=== PATIENT | male | born 1975 | race African-American/Black ===

== ENCOUNTER 2016-08-23 07:06 | Emergency (ER) | payer SELFPAY ==
[~2016-08-23] VITALS: Ht 185.4 cm; Wt 95.3 kg
[2016-08-23 07:10] VITALS: BP 129/83
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
[2016-08-23 08:44] LABS: ACETAMINOPHEN < 10 ug/mL (10-30); ALANINE AMINOTRANSFERASE 56 U/L (3-41); ALBUMIN/GLOBULIN RATIO 1.6 (1.0-2.7); ALCOHOL < 10 mg/dL; ANION GAP 18 (5-15); ASPARTATE AMINO TRANSFERASE 51 U/L (5-40); CALCIUM 9.7 mg/dL (8.6-10.2); CARBON DIOXIDE 23 mEQ/L (20-30); CHLORIDE 100 mEQ/L (98-107); GLOMERULAR FILTRATION RATE > 60 mL/min (>60); HEMOLYSIS 27; POTASSIUM 4.1 mEQ/L (3.4-4.9); SODIUM 141 mEQ/L (135-145); TOTAL PROTEIN 7.5 g/dL (6.6-8.7)
[2016-08-23 09:10] LABS: BASOPHILS % (AUTO) 1.3 % (0.0-2.0); EOSINOPHILS % (AUTO) 0.8 % (0.0-3.0); LYMPHOCYTES % (AUTO) 26.8 % (20.0-45.0); MEAN CORPUSCULAR HEMOGLOBIN 33.1 PG (27.0-31.0); MEAN CORPUSCULAR HGB CONC 34.7 G/DL (32.0-36.0); MEAN CORPUSCULAR VOLUME 95 FL (80-99); MONOCYTES % (AUTO) 6.1 % (1.0-10.0); PLATELET COUNT 207 K/UL (150-450); RED BLOOD COUNT 4.71 M/UL (4.70-6.10); RED CELL DISTRIBUTION WIDTH 11.6 % (11.6-14.8); WHITE BLOOD COUNT 7.5 K/UL (4.8-10.8)
[2016-08-23 10:53] VITALS: BP 128/85
[2016-08-23 14:48] VITALS: BP 130/75
[2016-08-23 14:49] VITALS: BP 130/75
== END 2016-08-23 14:53 ==
LOC: EDBD 07:06 → EMR 07:40
DX: F29 Unspecified psychosis not due to a substance or known physiological condition (principal)
CPT/HCPCS: 36415; 80053; 80300; 85025; 99284; G0480; 80329

== ENCOUNTER 2019-10-16 17:59 | Emergency (ER) | payer MEDICAID ==
[~2019-10-16] VITALS: Ht 185.4 cm; Wt 102.1 kg
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
[2019-10-16 18:11] VITALS: BP 127/84
--- NOTE | 2019-10-16 18:22 | NUR ---
ED Nurse Note:pt. was BIBA from hotel room with behaivioral complaint, he barricaded door when [employer] arrived, has bipolar history
[2019-10-16 18:40] LABS: APPEARANCE,URINE CLEAR; BILIRUBIN, URINE NEGATIVE (NEGATIVE); GLUCOSE, URINE (UA) NEGATIVE (NEGATIVE); KETONES,URINE NEGATIVE (NEGATIVE); LEUKOCYTE ESTERASE ,URINE NEGATIVE (NEGATIVE); NITRITE,URINE NEGATIVE (NEGATIVE); PH,URINE 6 (4.5-8.0); PROTEIN,URINE 1+ (NEGATIVE); UROBILINOGEN,URINE NORMAL MG/DL (0.0-1.0)
[2019-10-16 18:42] LABS: COLOR,URINE YELLOW
--- NOTE | 2019-10-16 19:05 | NUR ---
ED Nurse Note: Report received from FABIANA Martin. Pt is in no acute disterss. ERMD bedside. Will continue to monitor.
--- NOTE | 2019-10-16 21:00 | NUR ---
ED Nurse Note: Upon discharge, pt stated that he did have a plan to harm himself and was having "racing thoughts". Pt states plan was to jump out of a window and he cannot gauruntee his safety at this time. CELESTINE made aware.
--- NOTE | 2019-10-16 21:10 | NUR ---
ED Nurse Note: Pt belongings taken from pt to ensure safety. Pt has two large backpacks with belonings inside locked in locker 2.
[2019-10-16 22:00] VITALS: BP 130/74
--- NOTE | 2019-10-16 22:00 | NUR ---
ED Nurse Note: Blood drawn by RN and sent to lab.
--- NOTE | 2019-10-16 22:00 | NUR ---
ED Nurse Note: Pt resting in bed at this time, RN bedside. No acute distress noted. Pt is not aggressive and is acting cooperatively. VSS.
[2019-10-16 22:21] LABS: BASOPHILS % (AUTO) 2.2 % (0.0-2.0); HEMATOCRIT 39.6 % (42.0-52.0); HEMOGLOBIN 13.2 G/DL (14.2-18.0); MEAN CORPUSCULAR VOLUME 96 FL (80-99); MONOCYTES % (AUTO) 8.3 % (1.0-10.0); NEUTROPHILS % (AUTO) 56.5 % (45.0-75.0); PLATELET COUNT 331 K/UL (150-450); RED BLOOD COUNT 4.11 M/UL (4.70-6.10); RED CELL DISTRIBUTION WIDTH 12.2 % (11.6-14.8); WHITE BLOOD COUNT 8.8 K/UL (4.8-10.8)
[2019-10-16 22:37] LABS: ANION GAP 8 mmol/L (5-15); BLOOD UREA NITROGEN 8 mg/dL (7-18); CALCIUM 8.9 MG/DL (8.5-10.1); CARBON DIOXIDE 30 MMOL/L (21-32); CHLORIDE 102 MMOL/L (98-107); CREATININE 0.9 MG/DL (0.55-1.30); POTASSIUM 3.6 MMOL/L (3.5-5.1); SODIUM 139 MMOL/L (136-145)
[2019-10-16 22:50] LABS: ALANINE AMINOTRANSFERASE 82 U/L (12-78); ALBUMIN 3.7 G/DL (3.4-5.0); ALBUMIN/GLOBULIN RATIO 1.2 (1.0-2.7); ALKALINE PHOSPHATASE 60 U/L (46-116); ASPARTATE AMINO TRANSFERASE 62 U/L (15-37); BILIRUBIN,TOTAL 0.6 MG/DL (0.2-1.0)
--- NOTE | 2019-10-17 | NUR ---
ED Nurse Note: Pt appears to be sleeping in bed at this time. No acute distress noted.
--- NOTE | 2019-10-17 02:00 | NUR ---
ED Nurse Note: Pt ambulated to restroom with steady gait. No acute distress noted. Will continue to montior.
--- NOTE | 2019-10-17 04:30 | NUR ---
ED Nurse Note: Pt ambulated to restroom with steady gait. No acute distress noted. Pt is cooperative. Will continue to monitor.
[2019-10-17 05:30] VITALS: BP 140/85
--- NOTE | 2019-10-17 07:10 | NUR ---
HAND-OFF: Report given to FABIANA Cleaning and endorsed plan of care. Pt is in no acute distress and being cooperative at this time.
[2019-10-17 07:41] VITALS: BP 136/71
--- NOTE | 2019-10-17 07:42 | NUR ---
ED Nurse Note: received pt from FABIANA Martinez. Glo/Dang. Breathing normal/even/unlabored. Skin warm/dry/intact. IV patent and intact. Pt denies SI/HI at this time but states that he was SI and wanted to cut himself. ASHLEIGH noted. Breakfast ordered. Addendum: 10/17/19 at 0744 by [email or web address] ED Nurse Note: received pt from FABIANA Martinez. Glo/Dang. Breathing normal/even/unlabored. Skin warm/dry/intact. Pt denies SI/HI at this time but states that he was SI and wanted to cut himself. ASHLEIGH noted. Breakfast ordered.
--- NOTE | 2019-10-17 11:06 | NUR ---
HAND-OFF: Report given to FABIANA Rivera. NAD noted.
[2019-10-17 11:40] VITALS: BP 130/70
--- NOTE | 2019-10-17 11:45 | NUR ---
ED Nurse Note: Pt is laying down in bed, awake. Pt denies SI right now and feels like he is better than yesterday. Safety precautions in place.
[2019-10-17] MEDS ORDERED: LORazepam 1mg tab ORAL ONE (12:45)
--- NOTE | 2019-10-17 12:45 | NUR ---
ED Nurse Note: Pt is laying in room eating a sandwhich. Safety measures in place.
--- NOTE | 2019-10-17 14:15 | NUR ---
ED Nurse Note: Pt is alert and orientedx4, no voices. Safety measures in place. Pt eating lunch.
[2019-10-17 15:50] VITALS: BP 126/71
[2019-10-17] MEDS ORDERED: ZYPREXA10 MG ORAL ×2 (17:30→17:54)
[2019-10-17] MEDS ORDERED: ZOLOFT25 MG ORAL ×2 (17:31→17:54)
--- NOTE | 2019-10-17 18:14 | Consultation ---
DATE OF CONSULTATION: 10/17/2019 CONSULTING PHYSICIAN: Isaiah Tovar M.D. HISTORY OF PRESENT ILLNESS: The patient is a 44-year-old black male with a history of methamphetamine abuse admitted to the hospital on 5150 for being danger to self. The patient has a medication-seeking behavior. Stated that he needs to be transferred to [place]. The patient's psychiatrist is Dr. Bird. The patient is calm sitting on a gurney. Does not appear to be depressed nor distressed. He is not endorsing any suicidal or homicidal ideation. Eating serving inadequately, but asking for more food. The patient is requesting to be transferred to psychiatric unit and see his psychiatrist also. PAST PSYCHIATRY HISTORY: Psychotic disorder most likely due to using drugs. PAST MEDICAL HISTORY: Nonsignificant. ALLERGIES: Chart was reviewed. SUBSTANCE USE HISTORY: Methamphetamine. MENTAL STATUS EXAMINATION: The patient is alert and oriented times self, place, and situation. Mood is neutral. Affect is flat. Thought process concrete. Thought content no suicidal or homicidal ideation. Cognition is intact. Insight and judgment is good. ASSESSMENT: [place] I Methamphetamine abuse. [place] II Deferred. [place] III As above. [place] IV Low. [place] V 70. PLAN: 1. The patient is not an eminent danger to self or others. 2. Discontinue the 5150. 3. Continue the current psychotropic medications. 4. We will discontinue the patient. We will follow up plan with a psychiatrist. Isaiah Tovar M.D. DR: ARON JOB#: [id number] CC:
[2019-10-17 18:31] VITALS: BP 128/78
[2019-10-17 18:56] VITALS: BP 128/78
--- NOTE | 2019-10-17 18:57 | NUR ---
Homeless Discharge: Patient is being discharged from medical care. Awake, alert and oriented x3. Minicog done. [place] and food provided to pt. pt is appropriately dressed for the weather. After care instructions, including referral to community resources were given. Patient verbalized understanding of After care instructions; at this time patient does not request medications, equipment or placement. Patient signed patient consent in the medical record for patient destination upon discharge. All medical devices such as IV and ID band were removed. Patient ambulated out with all personal belongings with steady gait.
== END 2019-10-17 18:56 | disposition home or self-care (01) ==
LOC: EDBD 17:59 → EMR 18:10
DX: F31.9 Bipolar disorder, unspecified (principal); F15.10 Other stimulant abuse, uncomplicated; Z79.899 Other long term (current) drug therapy
CPT/HCPCS: 36415; 80053; 80307; 81003; 85025; G0480; G0481; Z7502; 99284

== ENCOUNTER 2019-11-21 04:52 | Emergency (ER) | payer MEDICAID, OTHER ==
[~2019-11-21] VITALS: Ht 185.4 cm; Wt 104.3 kg
[~2019-11-21 04:52] MED LIST: ZOLOFT25 MG ORAL; ZYPREXA10 MG ORAL
[2019-11-21] MEDS ORDERED: BENADRYL CRE1 APPLIC TOPIC (05:14)
[2019-11-21] MEDS ORDERED: DiphenhydrAMINE & Zinc 28g Cream TOPIC ONE (05:15)
--- NOTE | 2019-11-21 05:19 | Emergency Room Report ---
History of Present Illness General Chief Complaint: General Complaint Source: Patient Present Illness HPI Disclaimer: Please note that this report is being documented using [employer] technology. This can lead to erroneous entry secondary to incorrect interpretation by the dictating instrument. HPI: 44-year-old male presents for evaluation of foot pain. Patient notes pain over his feet bilaterally and intermittent tingling. Denies trauma but does walk a lot. Denies prior history of foot injury or surgeries over the lower extremities. Also complaining of body wide itching and bumps over his skin. He believes there is fluid coming out of these bumps. Denies skin breakdown, ulcerations, bruising, bleeding. Denies fever or chills. PMH: Bipolar disorder PSH: Reviewed Allergies: Denies Social Hx: Marijuana use, methamphetamine use Allergies: Coded Allergies: No Known Allergies (Unverified , 08/23/16) COVID-19 Screening Contact w/high risk pt: No Recent Travel to affected area: No Experienced COVID-19 symptoms?: No Review of Systems All Other Systems: negative except mentioned in HPI Physical Exam Vital Signs Date Time Temp Pulse Resp B/P (MAP) Pulse Ox O2 Delivery O2 Flow Rate FiO2 11/21/19 04:53 98.6 103 22 125/71 (89) 96 Room Air General: Awake and alert, no acute distress HEENT: NC/AT. EOMI. Resp: Normal work of breathing Skin: Intact. No abrasions, laceration or rash over the exposed skin. Multiple areas of healing picked lesions over his arms and legs. There is a blister over the left great toe that has been ruptured. No signs of surrounding erythema, edema, no purulence, no drainage, no bleeding. MSK: Normal tone and bulk. Moving all extremities. No obvious deformity. No tenderness in the lower extremities. Full range of motion at the ankles. No midfoot tenderness, no tenderness over the lateral or medial malleolus, no edema. 2+ PT and DP pulses. Neuro: Awake and alert. Mentating appropriately, sensation intact over the dermatomes of the lower extremities bilaterally. Medical Decision Making Diagnostic Impression: Primary Impression: Blister Additional Impression: Itching ER Course This is a 44-year-old male presenting for evaluation of bilateral foot pain without injury and bumps over his skin. Regarding his foot pain, looks like he has a ruptured blister over his left great toe but otherwise no signs of infection or trauma noted. May be overuse injury from his extensive walking. Patient is picking his skin during the examination trying to express material from hair follicles. I see no evidence of abscess, cellulitis or other acute skin pathology though the patient is covered and healing lesions over his extremities from excessive skin picking. He is complaining of itching and will be prescribed Benadryl cream. I advised him to stop picking at his skin as it can cause an infection. Also wanted his blood pressure checked on arrival. Blood pressures within normal limits. Will clean his blister and apply bandage. Provide Benadryl cream for his itching and discharged with outpatient follow-up. Last Vital Signs Date Time Temp Pulse Resp B/P (MAP) Pulse Ox O2 Delivery O2 Flow Rate FiO2 11/21/19 04:53 98.6 103 22 125/71 (89) 96 Room Air Disposition: HOME, SELF-CARE Condition: Stable Scripts Diphenhydramine HCl/Zinc Acet (Benadryl Itch Stopping Crm) 28.3 Gm Cream..g. 1 APPLIC TOPIC TID for 5 Days, APPLIC Prov: Trever Fields MD 11/21/19 Patient Instructions: Blisters Additional Instructions: Please follow-up with your primary care doctor in the next 1 to 3 days to discuss this emergency department visit and for reevaluation. If you have any new or worsening symptoms please return to the emergency department for reevaluation. Please note that this report is being documented using [employer] technology. This can lead to erroneous entry secondary to incorrect interpretation by the dictating instrument. Trever Fields MD Nov 21, 2019 05:19
[2019-11-21 05:35] VITALS: BP 121/60
== END 2019-11-21 05:35 | disposition home or self-care (01) ==
LOC: EMR 05:07
DX: S90.422A Blister (nonthermal), left great toe, initial encounter (principal); X58.XXXA Exposure to other specified factors, initial encounter; Y92.9 Unspecified place or not applicable; L29.9 Pruritus, unspecified; F31.9 Bipolar disorder, unspecified; M25.571 Pain in right ankle and joints of right foot; M25.572 Pain in left ankle and joints of left foot
CPT/HCPCS: 99282

== ENCOUNTER 2020-06-06 20:04 | Emergency (ER) | payer OTHER ==
[~2020-06-06] VITALS: Ht 182.9 cm; Wt 81.6 kg
[~2020-06-06 20:04] MED LIST changes: +BENADRYL CRE1 APPLIC TOPIC
[2020-06-06 20:10] VITALS: BP 125/72
--- NOTE | 2020-06-06 20:10 | NUR ---
ED Nurse Note: Patient brought in by ambulance [facility] [address] from [facility], d/t pt requesting to be placed at [facility]. Patient aao x 4 and ambulatory with steady gait. Patient denies pain or any physical complaints. Patient reports history of schizophrenia. Patient stable during assessment. No acute distress noted.
--- NOTE | 2020-06-06 20:15 | NUR ---
ED Nurse Note: ERMD at bedside
--- NOTE | 2020-06-06 20:37 | Emergency Room Report ---
History of Present Illness General Chief Complaint: Behavioral Complaint Source: Patient, EMS (Trever Fields MD) Present Illness HPI Disclaimer: Please note that this report is being documented using DRAGON technology. This can lead to erroneous entry secondary to incorrect interpretation by the dictating instrument. HPI: 44-year-old male presents by EMS for evaluation of auditory hallucinations. The patient states he is hearing voices and has a prior history of schizophrenia. No longer compliant with his Geodon, Seroquel or Zyprexa. Recently discharged from [facility] after a brief stay according to patient. He was seen at [facility] just prior to arrival stating a persistent auditory hallucinations. Currently denies SI/HI. His story is tangential he is a poor historian but he feels increasingly paranoid and believes people are trying to infect him with COVID-19. Denies harming self or others. Prior history of methamphetamine use. States last use was over 3 days ago. PMH: Substance abuse, schizophrenia PSH: Reviewed Allergies: Olanzapine Social Hx: Methamphetamine use, THC use (Trever Fields MD) Allergies: Coded Allergies: OLANZAPINE (Verified Allergy, Unknown, 06/06/20) COVID-19 Screening Contact w/high risk pt: No Recent Travel to affected area: No Experienced COVID-19 symptoms?: No COVID-19 Testing performed PAINTER MIRROR: Yes - 06/05 COVID-19 Screening: Negative COVID-19 COVID-19 Testing Source: nares (Trever Fields MD) Nursing Documentation-PMH History Of Psychiatric Problem: Yes - schizophrenic/bipolar (Trever Fields MD) Review of Systems All Other Systems: negative except mentioned in HPI (Trever Fields MD) Physical Exam Vital Signs Date Time Temp Pulse Resp B/P (MAP) Pulse Ox O2 Delivery O2 Flow Rate FiO2 06/06/20 20:05 98.2 105 18 117/69 (85) 99 Room Air General: Awake and alert, no acute distress HEENT: NC/AT. EOMI. Cardiovascular: RRR. S1 and S2 normal. No murmur appreciated Resp: Normal work of breathing. No cough, wheezing or crackles appreciated Abdomen: Abdomen is soft, nondistended. Nontender Skin: Intact. No abrasions, laceration or rash over the exposed skin MSK: Normal tone and bulk. Moving all extremities. No obvious deformity. Neuro: Awake and alert. Somewhat tangental thinking but redirectable. Denying SI/HI (Trever Fields MD) Medical Decision Making Homeless Attestation I, The treating physician, Dr Vinnie Mercedes, has assessed and agrees that patient i s medically stable for discharge to an outpatient disposition. (Vinnie Mercedes MD) Diagnostic Impression: Primary Impression: Acute psychosis Additional Impression: Methamphetamine abuse ER Course 42 year old male with psychiatric history and prior substance abuse presents for evaluation of paranoid thoughts and reported auditory hallucinations. Patient arrives with stable vital signs, in no acute distress and denies SI/HI. Differential includes but is not limited to substance abuse, decompensated psychiatric issue, medication noncompliance among others. Labs obtained largely within normal limits aside from positive results for amphetamines. He will be signed out to oncoming provider for monitoring and final disposition. Laboratory Tests Test 06/06/20 20:38 06/06/20 23:57 White Blood Count 7.2 K/UL (4.8-10.8) Red Blood Count 4.55 M/UL (4.70-6.10) L Hemoglobin 14.6 G/DL (14.2-18.0) Hematocrit 44.8 % (42.0-52.0) Mean Corpuscular Volume 98 FL (80-99) Mean Corpuscular Hemoglobin 32.1 PG (27.0-31.0) H Mean Corpuscular Hemoglobin Concent 32.6 G/DL (32.0-36.0) Red Cell Distribution Width 13.2 % (11.6-14.8) Platelet Count 304 K/UL (150-450) Mean Platelet Volume 6.0 FL (6.5-10.1) L Neutrophils (%) (Auto) 69.8 % (45.0-75.0) Lymphocytes (%) (Auto) 19.8 % (20.0-45.0) L Monocytes (%) (Auto) 7.6 % (1.0-10.0) Eosinophils (%) (Auto) 0.1 % (0.0-3.0) Basophils (%) (Auto) 2.8 % (0.0-2.0) H Sodium Level 143 MMOL/L (136-145) Potassium Level 4.3 MMOL/L (3.5-5.1) Chloride Level 105 MMOL/L (98-107) Carbon Dioxide Level 29 MMOL/L (21-32) Anion Gap 9 mmol/L (5-15) Blood Urea Nitrogen 18 mg/dL (7-18) Creatinine 1.2 MG/DL (0.55-1.30) Estimated Glomerular Filtration Rate > 60 mL/min (>60) Glucose Level 98 MG/DL (74-106) Calcium Level 9.1 MG/DL (8.5-10.1) Total Bilirubin 1.0 MG/DL (0.2-1.0) Aspartate Amino Transferase (AST) 42 U/L (15-37) H Alanine Aminotransferase (ALT) 58 U/L (12-78) Alkaline Phosphatase 75 U/L (46-116) Total Protein 7.5 G/DL (6.4-8.2) Albumin 4.0 G/DL (3.4-5.0) Globulin 3.5 g/dL Albumin/Globulin Ratio 1.1 (1.0-2.7) Salicylates Level < 0.2 ug/mL (2.8-20) L Acetaminophen Level < 2 MCG/ML (10-30) L Serum Alcohol < 3 mg/dL Urine Opiates Screen Negative (NEGATIVE) Urine Barbiturates Screen Negative (NEGATIVE) Phencyclidine (PCP) Screen Negative (NEGATIVE) Urine Amphetamines Screen Positive (NEGATIVE) H Urine Benzodiazepines Screen Negative (NEGATIVE) Urine Cocaine Screen Negative (NEGATIVE) Urine Marijuana (THC) Screen Positive (NEGATIVE) H Microbiology Date/Time Source Procedure Growth Status 06/06/20 20:47 Nasopharynx SARS-CoV-2 RdRp Gene Assay - Final Complete (Trever Fields MD) ER Course Patient presents with acute psychosis. This probably worsened or induced by his methamphetamine abuse. I gave him Haldol here. He has been sleeping through the night. He is no longer hearing voices. Will discharge home in the morning. At this moment in time, no criteria for 5150. Patient has paperwork's from several different hospital. He was just discharged from [facility] earlier today. He also has paperwork from a psychiatric hospital few days ago. This patient is a chronic risk of self injury due to poor impulse control, limit ed coping skills, and judgment intermittently impaired by intoxication. I believe that the available clinical evidence to suggest that these characteristics derived primarily from personality disorder and are likely very stable over time. Hospitalization would likely attenuate risk of self-harm only during chcf period, without lasting risk reduction. Serious self-harm, while possible, would likely be inadvertent, and because of impulsivity, and foreseeable. For these reasons, I do not believe hospitalization would provide meaningful reduction in risk of self-harm. (Vinnie Mercedes MD) Last Vital Signs Date Time Temp Pulse Resp B/P (MAP) Pulse Ox O2 Delivery O2 Flow Rate FiO2 06/06/20 20:10 98.2 99 18 125/72 99 Room Air (Trever Fields MD) Status: improved (Vinnie Mercedes MD) Disposition: HOME, SELF-CARE Condition: Stable Scripts Quetiapine Fumarate* (SEROQUEL*) 100 Mg Tablet 100 MG ORAL DAILY, #30 TAB Prov: Vinnie Mercedes MD 06/07/20 Referrals: NON PHYSICIAN (PCP) Patient Instructions: Self-Destructive Behavior Additional Instructions: Abstain from drug use. Follow-up with mental health within a week. Return if worse. Trever Fields MD Jun 06, 2020 20:36 Vinnie Mercedes MD Jun 07, 2020 02:28
--- NOTE | 2020-06-06 20:50 | NUR ---
ED Nurse Note: Covid swab collected and sent to lab. Pt given urinal for urine sample, states he is drinking water and is unable to pee right now.
[2020-06-06 21:12] LABS: BASOPHILS % (AUTO) 2.8 % (0.0-2.0); EOSINOPHILS % (AUTO) 0.1 % (0.0-3.0); HEMATOCRIT 44.8 % (42.0-52.0); HEMOGLOBIN 14.6 G/DL (14.2-18.0); LYMPHOCYTES % (AUTO) 19.8 % (20.0-45.0); MEAN CORPUSCULAR VOLUME 98 FL (80-99); MONOCYTES % (AUTO) 7.6 % (1.0-10.0); NEUTROPHILS % (AUTO) 69.8 % (45.0-75.0); PLATELET COUNT 304 K/UL (150-450); RED BLOOD COUNT 4.55 M/UL (4.70-6.10); RED CELL DISTRIBUTION WIDTH 13.2 % (11.6-14.8); WHITE BLOOD COUNT 7.2 K/UL (4.8-10.8)
[2020-06-06 21:14] LABS: ANION GAP 9 mmol/L (5-15); BLOOD UREA NITROGEN 18 mg/dL (7-18); CALCIUM 9.1 MG/DL (8.5-10.1); CARBON DIOXIDE 29 MMOL/L (21-32); CHLORIDE 105 MMOL/L (98-107); CREATININE 1.2 MG/DL (0.55-1.30); POTASSIUM 4.3 MMOL/L (3.5-5.1); SODIUM 143 MMOL/L (136-145)
[2020-06-06 21:18] LABS: ALANINE AMINOTRANSFERASE 58 U/L (12-78); ALBUMIN/GLOBULIN RATIO 1.1 (1.0-2.7); ALKALINE PHOSPHATASE 75 U/L (46-116); ASPARTATE AMINO TRANSFERASE 42 U/L (15-37)
--- NOTE | 2020-06-06 21:19 | NUR ---
ED Nurse Note: Patient states he is unable to provide a urine sample at this moment and will notify when he is ready to.
[2020-06-06] MEDS ORDERED: Haloperidol Decanoate (Long Acting) 50mg Inj IM ONE (22:30)
--- NOTE | 2020-06-07 00:03 | NUR ---
Urine sample collected-sent to lab.
[2020-06-07] MEDS ORDERED: QUETIAPINE FUM100 MG ORAL (02:27)
[2020-06-07 06:00] VITALS: BP 122/69
--- NOTE | 2020-06-07 06:00 | NUR ---
ER DISCHARGE NOTE: Patient is cleared to be discharged per ERMD, pt is aox4, on room air, with stable vital signs. pt was given dc and prescription instructions, pt was able to verbalize understanding, pt id band and iv site removed intact without complications. pt is able to ambulate with steady gait. pt took all belongings. pt stable upon discharge.
== END 2020-06-07 06:00 | disposition home or self-care (01) ==
LOC: EDUNIT# 20:04 → EDBD 20:04 → EMR 20:19
DX: F23 Brief psychotic disorder (principal); F15.10 Other stimulant abuse, uncomplicated; F31.9 Bipolar disorder, unspecified; F20.9 Schizophrenia, unspecified; Z88.8 Allergy status to other drugs, medicaments and biological substances
CPT/HCPCS: 36415; 80053; 80307; 85025; G0480; G0481; U0002; Z7502; 99283